=== PATIENT | male | born 1970 | race Caucasian/White ===

== ENCOUNTER 2017-11-20 14:48 | Emergency (ER) | payer OTHER ==
[~2017-11-20] VITALS: Ht 167.6 cm; Wt 88.5 kg
[~2017-11-20 14:48] MED LIST: AUGMENTIN 875875 MG PO
--- NOTE | 2017-11-20 15:55 | RADIOLOGY REPORT ---
EXAMINATION: XR CHEST CLINICAL INFORMATION: Cough, shortness of breath, fever. COMPARISON: Chest done on 12/11/2008. TECHNIQUE: 2 views of the chest were obtained. FINDINGS: No significant abnormality is noted involving the heart, lungs, mediastinum, bony thorax or soft tissues. IMPRESSION: Unremarkable examination. Specifically, no radiographic evidence of pneumonia.
[2017-11-20] MEDS ORDERED: PREDNISONE50 M1 PO (16:55)
[2017-11-20] MEDS ORDERED: CHERATUSSIN AC118 M1 PO (16:55)
[2017-11-20] MEDS ORDERED: AUGMENTIN 875-1 EACH PO (16:55)
[2017-11-20] MEDS ORDERED: PROAIR HFA8.5 GM INH (16:56)
[2017-11-20] MEDS ORDERED: IBUPROFEN800 M1 PO (16:56)
--- NOTE | 2017-11-20 16:57 | ED INFLUENZA/URI COMPLAINT ---
History of Present Illness General Chief Complaint: Upper Respiratory Sx/Fever Stated Complaint: CONGESTION, COUGH, CHILLS Source: patient Exam Limitations: no limitations Vital Signs & Intake/Output Vital Signs & Intake/Output Vital Signs Date Time Temp Pulse Resp B/P B/P Pulse O2 O2 Flow FiO2 Mean Ox Delivery Rate 11/20 1705 98.7 98 20 148/89 94 11/20 1616 96 11/20 1459 99.5 78 20 155/98 94 Room Air Allergies Coded Allergies: haloperidol (From HALDOL) (CANT BREATH 11/20/17) Reconcile Medications Albuterol Sulfate (Proair Hfa) 90 MCG HFA.AER.AD 2 PUF INH Q4-6 PRN PRN cough/ sob Amoxicillin/Potassium Clav (Augmentin 875-125 Tablet) 875 MG-125 MG TABLET 1 TAB PO BID PNA/BRONCHITIS Codeine Phosphate/Guaifenesi (Cheratussin AC Syrup) 10 MG-100 MG/5 ML LIQUID 10 ML PO Q6H PRN COUGH Ibuprofen 800 MG TABLET 1 TAB PO TID PRN cough/fever Prednisone 50 MG TABLET 1 TAB PO DAILY BRONCHITIS Triage Note: PT STATES HE IS HAVING TROUBLE BREATHING WENT TO URGENT CARE ON THURSDAY WAS GIVEN 3 PREDNISONE COUGH MED AND SCRIPT FOR BOTH. PT STATES HE IS JUST GETTING WORSE. PT WAS TOLD HE HAD VIRUS. Triage Nurses Notes Reviewed? yes Onset: Abrupt Duration: week(s): (1), constant, continues in ED, getting worse Timing: single episode today Severity: moderate, severe Severity Numbers: 7 Prior Episodes/Possible Cause: occassional episodes No Modifying Factors: none HPI: 47 y/o male history of bipolar disorder presents for evaluation of cough, congestion, wheezing shortness of breath and chest tightness. Patient reports symptoms started about a week ago been getting worse. He went to an urgent care was given a single dose of prednisone a few days ago and has been using a pro- air inhaler but is not getting any better. He states the inhaler is very old not sure if it's working right. He reports a cough productive of yellow/brown sputum. He has had chills and sweats. He denies hemoptysis or lower extremity edema. He reports pain in his ribs from coughing. He is a current every day smoker denies a history of asthma or COPD. No nausea vomiting or diarrhea. No recent surgery or recent trauma. (Jace Edge) Past History Travel History Traveled to [place] past 21 day No Medical History Any Pertinent Medical History? see below for history Psychiatric: bipolar disease Tetanus Vaccine: 02/14/15 Surgical History Surgical History: non-contributory Psychosocial History What is your primary language Syrian Tobacco Use: Current Daily Use Daily Tobacco Use Amount/Type: => 5 Cigarettes daily ETOH Use: occasional use Illicit Drug Use: denies illicit drug use Family History Hx Contributory? No (Jace Edge) Review of Systems Review of Systems Constitutional: Reports: fever, malaise, weakness. EENTM: Reports: no symptoms. Respiratory: Reports: see HPI, cough, short of breath, sputum production, wheezing. Cardiovascular: Reports: no symptoms. GI: Reports: no symptoms. Genitourinary: Reports: no symptoms. Musculoskeletal: Reports: no symptoms. Skin: Reports: no symptoms. Neurological/Psychological: Reports: no symptoms. Hematologic/Endocrine: Reports: no symptoms. Immunologic/Allergic: Reports: no symptoms. All Other Systems: Reviewed and Negative (Jace Edge) Physical Exam Physical Exam General Appearance: well developed/nourished, no apparent distress, alert, awake Head: atraumatic, normal appearance Eyes: Bilateral: normal appearance, PERRL, EOMI. Ears, Nose, Throat: normal ENT inspection, moist mucous membrane, hearing grossly normal, Tympanic normal, pharynx normal, nasal congestion, nasal drainage (clear) Neck: normal inspection, supple, full range of motion Respiratory: chest non-tender, no respiratory distress, quiet respiration, decreased breath sounds, wheezing (end expiratory) Cardiovascular: regular rate/rhythm, normal peripheral pulses Peripheral Pulses: 2+ radial (R), 2+ radial (L) Gastrointestinal: soft, non-tender Back: normal inspection, normal range of motion, no vertebral tenderness Extremities: normal inspection, normal range of motion, no edema Neurologic/Psych: no motor/sensory deficits, awake, alert, oriented x 3, normal gait Skin: intact, normal color, warm/dry Lymphatic: no anterior cervical marylou Core Measures Sepsis Present: No Sepsis Focused Exam Completed? No (Jace Edge) Progress Differential Diagnosis: influenza, pneumonia, pharyngitis, sinusitis, acute bronchitis, asthma, COPD, PE Plan of Care: Patient is here for evaluation of cough congestion and rhinorrhea shortness of breath. On exam he has diminished breath sounds and wheezing. Initial oxygen saturation is 94% is not tachycardic. He does have some rib pain with coughing he is also a current every day smoker. Patient was medicated with 60 mg of prednisone Robitussin-AC Tylenol and a DuoNeb. Chest x-ray ordered and will be reassessed. Chest x-ray Is negative. Patient is feeling better after medications. Patient was ambulated in the emergency department and maintained an oxygen saturation of 93%. Patient will be treated for acute bronchitis with prednisone taper, Augmentin, Cheratussin Tylenol/ibuprofen and pro-air inhaler. Advised him to quit smoking. He has an appointment with his primary care doctor on Thursday. Discussed return precautions. pt agrees. CXR Impression: PATIENT: MIGDALIA CASTANON PRESENT AGE: 47 PATIENT ACCOUNT NO: [id number] : 71 LOCATION: [facility] ORDERING PHYSICIAN: Jace SOOD SERVICE DATE: 11/20/17 EXAM TYPE: RAD - XRY-CHEST XRAY, TWO VIEWS EXAMINATION: XR CHEST CLINICAL INFORMATION: Cough, shortness of breath , fever. COMPARISON: Chest done on 12/11/2008. TECHNIQUE: 2 views of the chest were obtained. FINDINGS: No significant abnormality is noted involving the heart , lungs, mediastinum, bony thorax or soft tissues. IMPRESSION: Unremarkable examination. Specifically, no radiographic evidence of pneumonia. DICTATED BY: Adelia Flores MD DATE/TIME DICTATED:11/20/171546 [employer] ELECTRONICS TECHNICIAN:JOSELO DATE/TIME TRANSCRIBED:11/20/171546 CONFIDENTIAL, DO NOT COPY WITHOUT APPROPRIATE AUTHORIZATION. <Electronically signed in Other Vendor System> SIGNED BY: Adelia Flores MD 11/20/17 3835 Initial ED EKG: none (Jace Edge) Departure Departure Disposition: HOME OR SELF CARE Condition: Stable Clinical Impression Primary Impression: Acute bronchitis Qualifiers: Bronchitis organism: unspecified organism Qualified Code: J20.9 - Acute bronchitis, unspecified Referrals: Nallely Nieto APRN (PCP/Family) Additional Instructions: Take antibiotics and steroids as directed for the full course. Use pro-air inhaler every 4-6 hours as needed for cough or shortness of breath. Cheratussin as needed for cough this may cause drowsiness. Tylenol and ibuprofen as needed for pain and fevers. Make a follow-up appointment with your doctor on Thursday as scheduled. Monitor your symptoms return with persistent high fever, worsening shortness of breath, coughing up blood or any other concerns. Please go over all results of today's visit with your primary care doctor. Contact your primary care doctor to let them know you were here in the emergency room. There may be nonspecific findings which may not be related to your visit today here in the emergency room but may require further evaluation and chronic monitoring by your primary care doctor. If you had a laceration today the chance of foreign body always remains. You should follow-up with your primary care doctor for recheck in 3-5 days for a wound check. If you had an x-ray done there is a chance that a fracture could have been missed on initial read and you should follow-up with your primary care doctor for repeat x-rays if symptoms persist. If your blood pressure was elevated here in the emergency room please have rechecked by her primary care doctor within the next 48 hours by your primary care doctor. If you were prescribed a narcotic here in the emergency room or any type of controlled substances you're not allowed to drive while taking this medication or operate any type of heavy machinery. Narcotics can make you feel lightheaded dizziness nausea and can cause constipation. You may need to spanish moss picker a stool softener. Thank you for choosing [facility] emergency room. Please return to the emergency room immediately if you have any other concerns worsening of symptoms. Departure Forms: Customer Survey General Discharge Information Prescriptions: Current Visit Scripts Prednisone 1 TAB PO DAILY #5 TAB Codeine Phosphate/Guaifenesi (Cheratussin AC Syrup) 10 ML PO Q6H PRN COUGH #240 ML Amoxicillin/Potassium Clav (Augmentin 875-125 Tablet) 1 TAB PO BID #20 TAB Albuterol Sulfate (Proair Hfa) 2 PUF INH Q4-6 PRN PRN cough/sob #1 INHAL Ibuprofen 1 TAB PO TID PRN cough/fever #30 TAB (Jace Edge) PA/TRANSFORMATION COACH Co-Sign Statement Statement: ED Attending supervision documentation- I saw and evaluated the patient. I have also reviewed all the pertinent lab results and diagnostic results. I agree with the findings and the plan of care as documented in the PA's/TRANSFORMATION COACH's documentation. x I have reviewed the ED Record and agree with the PA's/TRANSFORMATION COACH's documentation. [] Additions or exceptions (if any) to the PAs/TRANSFORMATION COACH's note and plan are summarized below: [] (Isacc SPEARS,Prince)
[2017-11-20 17:05] VITALS: BP 148/89
== END 2017-11-20 17:06 ==
LOC: ERH 14:48
DX: J20.9 Acute bronchitis, unspecified (principal); F17.210 Nicotine dependence, cigarettes, uncomplicated; R05 Cough; R07.89 Other chest pain
CPT/HCPCS: 1263; 1395; 71046